=== PATIENT | male | born 1955 | race Caucasian/White ===

== ENCOUNTER → 2020-05-13 | Outpatient (CLI) | payer MEDICARE | LOC: KOH-I 13:57 | DX: M79.672 Pain in left foot (principal); M25.572 Pain in left ankle and joints of left foot; S82.832A Other fracture of upper and lower end of left fibula, initial encounter for closed fracture; M79.89 Other specified soft tissue disorders; X58.XXXA Exposure to other specified factors, initial encounter | CPT/HCPCS: 73610; 73630 ==

== ENCOUNTER 2021-08-28 21:33 | Emergency (ER) | payer MEDICARE ==
[2021-08-28 21:53] LABS: RED BLOOD COUNT 4.47 M/UL (4.20-5.50); WHITE BLOOD COUNT 10.2 K/UL (4.5-11.0)
[2021-08-28 22:15] LABS: BUN/CREATININE RATIO 9 (0-10)
== END 2021-08-29 00:35 | disposition left against medical advice (07) ==
LOC: ER1 21:33
PROVIDERS: Emergency Medicine
DX: R41.82 Altered mental status, unspecified (principal)
CPT/HCPCS: 70450; 70496; 70498; 71045; 80053; 80307; 81001; 85025; 85610; 85730; 93005; 99281; G0480; Q9967